=== PATIENT | male | born 1945 | race Hispanic/Latino ===

== ENCOUNTER 2021-04-20 06:56 | Day surgery (SDC) | payer MEDICARE, MEDICAID ==
[~2021-04-20] VITALS: Ht 172.7 cm; Wt 74.8 kg
[~2021-04-20 06:56] MED LIST: FLUTICASONE; IFEREX 151 PO; LIPITOR20 M1 PO; LISINOPRIL10 MG PO; TAMSULOSIN HCL0.4 MG PO; XELPROS0.005 % IO
[2021-04-20 10:14] VITALS: BP 146/75
== END 2021-04-20 09:11 | disposition home or self-care (01) ==
LOC: ORM 06:56
PROVIDERS: ATTEND Urology
PROC: 0VB03ZX Excision of Prostate, Percutaneous Approach, Diagnostic (ICD-10-PCS; principal; 2021-04-20)
PROC: BV49ZZZ Ultrasonography of Prostate and Seminal Vesicles (ICD-10-PCS; 2021-04-20)
DX: C61 Malignant neoplasm of prostate (principal); N40.1 Benign prostatic hyperplasia with lower urinary tract symptoms; N13.8 Other obstructive and reflux uropathy; I10 Essential (primary) hypertension; E78.2 Mixed hyperlipidemia
CPT/HCPCS: J1956